=== PATIENT | male | born 1945 | race Hispanic/Latino ===

== ENCOUNTER 2017-12-13 13:42 | Outpatient (CLI) | payer MEDICARE, BC ==
--- NOTE | 2017-12-13 17:35 | MRI ---
MRI CERVICAL SPINE WITHOUT CONTRAST: HISTORY: Neck pain. Bilateral hand numbness and tingling x6 months. COMPARISON: None. TECHNIQUE: An MRI of the cervical spine is performed without intravenous Gadolinium administration. Multisequen tial, multiplanar imaging is performed. FINDINGS: There is T1 marrow signal hypointensity involving the C5, C6, and C7 levels, with evidence of patchy T2 and STIR hyperintensity, suggesting type I modic change. There is mild loss of vertebral body hei ght at C6 and possibly at C7. There is no prevertebral soft tissue swelling. No MRI evidence of lig amentous injury. The visualized brain parenchyma, cervicomedullary junction, cervical cord, and upper thoracic cord kunz ve normal size and signal intensity. There is straightening of the normal cervical lordosis. C2-C3: No significant disk osteophyte complex. No significant central canal stenosis. The foramina are patent. C3-C4: Central disk bulge abuts the thecal sac. The ventral subarachnoid space is effaced. Deformi ty of the cervical cord without T2 hyperintensity of the cord. Mild central canal stenosis. Bilater ally, the neural foramina are patent. C4-C5: Broad-based disk osteophyte complex abuts the thecal sac. The ventral subarachnoid space is effaced. Moderate central canal stenosis. Degenerative change in the bilateral uncovertebral joints results in moderate to severe bilateral neural foraminal narrowing. C5-C6: Broad-based disk osteophyte complex, along with ligamentum flavum thickening results in sever e central canal stenosis. There is deformity of the cervical cord without T2 hyperintensity in the c ord. Moderate to severe bilateral foraminal narrowing. C6-C7: Broad-based disk osteophyte complex with a central components that abuts the thecal sac. The re is moderate central canal stenosis. Moderate right and left foraminal narrowing. C7-T1: No significant central canal stenosis or high grade neural foraminal narrowing. IMPRESSION: 1. Severe central canal stenosis at C5-C6. Additional significant central canal stenosis at C6-C7. 2. Mild loss of vertebral body height at C6, presumed to be due to a remote insult; however, there i s evidence of STIR hyperintensity, which may be due to edema or modic change. Comparison with CT is recommended to assess for possible sclerosis, suggesting a chronic loss of vertebral body height at C 5. 3. Endplate modic changes at C4-C5, C5-C6, and C6-C7. These modic changes have the combination of a type I appearance. POS: VALDO
== END 2017-12-13 13:43 | disposition home or self-care (01) ==
LOC: BICMRI 13:42
PROVIDERS: ATTEND Orthopaedic Surgery Hand Surgery
DX: M40.202 Unspecified kyphosis, cervical region (principal); G56.20 Lesion of ulnar nerve, unspecified upper limb; M48.02 Spinal stenosis, cervical region
CPT/HCPCS: 72141